=== PATIENT | female | born 2000 | race Caucasian/White ===

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

== ENCOUNTER 2018-01-27 10:06 | Emergency (ER) | payer OTHER ==
[~2018-01-27] VITALS: Ht 162.6 cm; Wt 49.9 kg
[~2018-01-27 10:06] MED LIST changes: +ALBU8.5H8 INH; +HYDR-971 PO
[2018-01-27] MEDS ORDERED: IV NORMAL SALINE 1,000ML 1,000 ML IV ONE ×3 (10:30→13:15)
[2018-01-27 10:37] LABS: BASO # 0.1 x10^3/uL (0.0-0.2); BASO % 1 % (0-3); EOS # 0.1 x10^3/uL (0.0-0.7); EOS % 1 % (0-3); HEMATOCRIT 44.5 % (36.0-47.0); HEMOGLOBIN 15.2 g/dL (12.0-15.5); LYMPH % 34 % (24-48); MEAN CORPUSCULAR HEMOGLOBIN 31 pg (25-35); MEAN CORPUSCULAR HGB CONC 34 g/dL (31-37); MEAN CORPUSCULAR VOLUME 90 fL (79-100); MONO # 0.6 x10^3/uL (0.0-1.1); MONO % 7 % (0-9); NEUT # 5.2 x10^3uL (1.8-7.7); NEUT % 58 % (31-73); PLATELET COUNT 308 x10^3/uL (140-400); RED BLOOD COUNT 4.97 x10^6/uL (3.50-5.40); RED CELL DISTRIBUTION WIDTH 13.4 % (11.5-14.5)
[2018-01-27 10:47] LABS: PREG TEST PT QUAL NEGATIVE (NEG)
[2018-01-27 10:54] LABS: ALBUMIN 4.2 g/dL (3.4-5.0); CALCIUM 9.1 mg/dL (8.5-10.1); CREATININE 0.7 mg/dL (0.6-1.0); DIRECT BILIRUBIN 0.1 mg/dL (0.0-0.2); GFR 107.8; POTASSIUM 3.2 mmol/L (3.5-5.1); TOTAL BILIRUBIN 0.3 mg/dL (0.2-1.0); TOTAL PROTEIN 7.2 g/dL (6.4-8.2)
[2018-01-27] MEDS ORDERED: ONDANSETRON PF 4 MG/2 ML VIAL. IV ONE (11:00)
[2018-01-27] MEDS ORDERED: ONDANSETRON ODT 4 MG TAB.RAPDIS PO ONE (11:00)
[2018-01-27] MEDS ORDERED: CONTRAST GIVEN MC PRN (11:30)
[2018-01-27] MEDS ORDERED: IOHEXOL 300 MG/ML 75 ML VIAL. IV ONE (11:30)
[2018-01-27 11:51] LABS: BACTERIA,URINE FEW /HPF (0-FEW); BILIRUBIN,URINE NEG (NEG); CLARITY,URINE HAZY; COLOR,URINE YELLOW; GLUCOSE,URINE NEG (NEG); NITRITE,URINE NEG (NEG); SQUAMOUS EPITHELIAL CELL,UR OCC /LPF; UROBILINOGEN,URINE 0.2 mg/dL (0.2 mg/dL)
--- NOTE | 2018-01-27 11:52 | PHYS DOC ---
Past History Past Medical History: No Pertinent History Past Surgical History: No Surgical History Smoking: Non-smoker Alcohol Use: None Drug Use: None Adult General Chief Complaint Chief Complaint: FLANK PAIN HPI HPI This is a pleasant 17-year-old female presenting the emergency department today with nausea vomiting and right flank pain. The pain is sharp shooting pain that is nonradiating intermittent and without alleviating factors. She denies any fevers or chills at home. She denies being . No vaginal bleeding. She denies hematuria polyuria or dysuria. Review of systems negative for chest pain shortness of breath fevers chills neck stiffness. All other review of systems is negative unless otherwise noted in history of present illness. ED course: 17-year-old female presenting with right flank pain. On arrival she is afebrile with a normal heart rate. Saturating well on room air. On examination she is well-appearing nontoxic and without any acute distress. Abdomen is soft and mildly tender in the right lower quadrant. Mild right CVA tenderness present. Otherwise no rebound tenderness or guarding. No distention of the abdomen. Negative Zarate sign. Regular rate and rhythm on cardiac auscultation. Clear lungs bilaterally. The remainder the exam is unremarkable. IV established, nausea and pain medications given along with IV fluids. Blood work obtained along with status and CT the abdomen pelvis. Blood work shows normal CBC. Chemistry panel shows mildly low potassium. Negative . Urinalysis shows blood without signs of infection. Negative leuk esterase. Negative nitrite. CT the abdomen pelvis shows a 3 mm right UVJ stone with hydronephrosis. Patient was recently catheterized which explains gas in lumen. We will provide the patient with oral pain medication. We will have her follow-up with urology within 3-5 days or to return for worsening symptoms.The patient has been examined and was not found to have an emergency medical condition. The patient was then discharged home in stable condition. They were to return if their symptoms worsened or if they were concerned for any reason. Tnyz-mh-aucg discharge instructions and return precautions were given. Patient' s questions were answered to their satisfaction. Patient is comfortable with plan. Review of Systems Review of Systems SEE ABOVE. Current Medications Current Medications Current Medications Medications (Trade) Dose Ordered Sig/Gavin Start Time Stop Time Status Last Admin Dose Admin Fentanyl Citrate (Fentanyl 2ml Vial) 50 mcg PRN Q30MIN PRN 01/27/18 10:30 01/27/18 23:00 01/27/18 11:38 50 MCG Info (Do NOT chart on this entry -- for MONITORING) 1 each PRN DAILY PRN 01/27/18 11:30 01/29/18 11:29 Iohexol (Omnipaque 300 Mg/ml) 75 ml 1X ONCE 01/27/18 11:30 01/27/18 11:31 DC 01/27/18 11:42 75 ML Ondansetron HCl (Zofran Odt) 4 mg 1X ONCE 01/27/18 11:00 01/27/18 11:01 DC 01/27/18 10:52 4 MG Ondansetron HCl (Zofran) 4 mg 1X ONCE 01/27/18 11:00 01/27/18 11:01 DC Sodium Chloride 1,000 ml @ 1,000 mls/hr 1X ONCE 01/27/18 10:30 01/27/18 11:29 DC 01/27/18 10:47 1,000 MLS/HR Allergies Allergies Allergies Coded Allergies Type Severity Reaction Last Updated Verified No Known Drug Allergies 04/07/15 No Physical Exam Physical Exam SEE ABOVE Constitutional: Well developed, well nourished, no acute distress, non-toxic appearance. [] HENT: Normocephalic, atraumatic, bilateral external ears normal, oropharynx moist, no oral exudates, nose normal. [] Eyes: PERRLA, EOMI, conjunctiva normal, no discharge. [] Neck: Normal range of motion, no tenderness, supple, no stridor. [] Cardiovascular:Heart rate regular rhythm, no murmur [] Lungs & Thorax: Bilateral breath sounds clear to auscultation [] Abdomen: Bowel sounds normal, soft, no masses, no pulsatile masses. [] Skin: Warm, dry, no erythema, no rash. [] Back: mild right cva tenderness. Extremities: No tenderness, no cyanosis, no clubbing, ROM intact, no edema. [] Neurologic: Alert and oriented X 3, normal motor function, normal sensory function, no focal deficits noted. [] Psychologic: Affect normal, judgement normal, mood normal. [] Current Patient Data Vital Signs Vital Signs Date Time Temp Pulse Resp B/P (MAP) Pulse Ox O2 Delivery O2 Flow Rate FiO2 01/27/18 11:39 102 20 134/84 (101) 97 Room Air 01/27/18 10:06 98.4 Lab Results Laboratory Tests Test 01/27/18 10:20 White Blood Count 9.0 x10^3/uL (4.0-11.0) Red Blood Count 4.97 x10^6/uL (3.50-5.40) Hemoglobin 15.2 g/dL (12.0-15.5) Hematocrit 44.5 % (36.0-47.0) Mean Corpuscular Volume 90 fL (79-100) Mean Corpuscular Hemoglobin 31 pg (25-35) Mean Corpuscular Hemoglobin Concent 34 g/dL (31-37) Red Cell Distribution Width 13.4 % (11.5-14.5) Platelet Count 308 x10^3/uL (140-400) Neutrophils (%) (Auto) 58 % (31-73) Lymphocytes (%) (Auto) 34 % (24-48) Monocytes (%) (Auto) 7 % (0-9) Eosinophils (%) (Auto) 1 % (0-3) Basophils (%) (Auto) 1 % (0-3) Neutrophils # (Auto) 5.2 x10^3uL (1.8-7.7) Lymphocytes # (Auto) 3.0 x10^3/uL (1.0-4.8) Monocytes # (Auto) 0.6 x10^3/uL (0.0-1.1) Eosinophils # (Auto) 0.1 x10^3/uL (0.0-0.7) Basophils # (Auto) 0.1 x10^3/uL (0.0-0.2) Sodium Level 143 mmol/L (136-145) Potassium Level 3.2 mmol/L (3.5-5.1) L Chloride Level 105 mmol/L (98-107) Carbon Dioxide Level 27 mmol/L (21-32) Anion Gap 11 (6-14) Blood Urea Nitrogen 9 mg/dL (7-20) Creatinine 0.7 mg/dL (0.6-1.0) Estimated GFR (Cockcroft-Gault) 107.8 Glucose Level 119 mg/dL (70-99) H Calcium Level 9.1 mg/dL (8.5-10.1) Total Bilirubin 0.3 mg/dL (0.2-1.0) Direct Bilirubin 0.1 mg/dL (0.0-0.2) Aspartate Amino Transferase (AST) 16 U/L (15-37) Alanine Aminotransferase (ALT) 32 U/L (14-59) Alkaline Phosphatase 62 U/L (46-116) Total Protein 7.2 g/dL (6.4-8.2) Albumin 4.2 g/dL (3.4-5.0) Lipase 80 U/L (73-393) Serum Test, Qualitative Negative (NEG) EKG EKG [] Radiology/Procedures Radiology/Procedures [] Course & Med Decision Making Course & Med Decision Making Pertinent Labs and Imaging studies reviewed. (See chart for details) [] Dragon Disclaimer Dragon Disclaimer This electronic medical record was generated, in whole or in part, using a voice recognition dictation system. Departure Departure: Impression: Primary Impression: Nausea and vomiting Additional Impressions: Right flank pain Nephrolithiasis Disposition: HOME, SELF-CARE Condition: STABLE Referrals: PCP,ALEX (PCP) Patient Instructions: Kidney Stones Additional Instructions: Thank you for allowing us to participate in your care today. Followup with [facility] in 5-7 days. Call your Primary Doctor tomorrow and inform them of your visit today. If you do not have a primary care provider you can ask for a list of our primary care providers. Return to the emergency department you have any new or concerning findings. Follow up with urology at: [id number], [place] [id number] This should be evaluated by the primary care physician and any necessary consulting services for continued management within a few days after discharge. Return to emergency room if you have any new or concerning symptoms including but not limited to fever, chills, nausea, vomiting, intractable pain, any new rashes, chest pain, shortness of air, uncontrolled bleeding, difficulty breathing, and/or vision loss. If at any time, you are having difficulty getting into your primary care doctor or a specialist, return to the emergency department. You may have been prescribed medication or given medication in the emergency department that can change in your level of thinking and ability to operate machinery. These medications include hydrocodone and Ativan. Also, Benadryl has been known to do this as well. Be sure to check with your pharmacist and ask if the medications you've prescribed can affect your level of consciousness. I recommend not operating heavy machinery or driving while on medication such as these. Scripts Hydrocodone Bit/Acetaminophen (HYDROCODONE-APAP 5-325 ) 1 Each Tablet 1 TAB PO PRN Q6HRS PRN for PAIN, #10 TAB 0 Refills Prov: TREV OTT MD 01/27/18 Problem Qualifiers TREV OTT MD January 27, 2018 11:52
[2018-01-27] MEDS: HYDROmorphone PF 1 MG/ML DISP.SYRIN IV PRN ×2 (12:18→13:17)
--- NOTE | 2018-01-27 12:23 | RAD ---
CT Abdomen and Pelvis With Intravenous Contrast: History: Right abdominal pain with vomiting. Comparison: None. Technique: After administration of intravenous contrast, 75 mL Omnipaque-300, CT of the abdomen and pelvis was performed. Exposure: One or more of the following individualized dose reduction techniques were utilized for this examination: 1. Automated exposure control 2. Adjustment of the mA and/or kV according to patient size 3. Use of iterative reconstruction technique Findings: Evaluation enteric structures may be limited by lack of oral contrast. Liver, spleen, pancreas, gallbladder, and bilateral adrenal glands are unremarkable. No bowel obstruction or inflammation is identified. Appendix is without evidence of inflammation. Uterus and adnexa have unremarkable CT appearance. Small amount of free fluid is present with pelvis, within physiologic limits. Moderate-severe right hydroureteronephrosis is noted secondary to 3 mm right UVJ stone. There is obstructive uropathy with delayed phase of enhancement relative to the contralateral side. There is also presence of gas within the anterior lumen of the urinary bladder. Impression: 1. Moderate-severe right hydroureteronephrosis secondary to 3 mm right UVJ stone. Associated right obstructive uropathy. 2. Gas is seen within the lumen of urinary bladder. This could be due to recent catheterization versus infection with gas-forming organisms. Recommend clinical correlation. Electronically signed by: Elliott Dos Santos MD (01/27/2018 12:20 PM) [facility]
[2018-01-27] MEDS ORDERED: HYDR-2758 PO (12:45)
[2018-01-27] MEDS ORDERED: POTA10TA10 PO (13:01)
[2018-01-27] MEDS ORDERED: ONDA4TAB10 SL (13:51)
[2018-01-27 14:20] VITALS: BP 127/80
== END 2018-01-27 14:45 | disposition home or self-care (01) ==
LOC: ER 10:06
DX: N13.2 Hydronephrosis with renal and ureteral calculous obstruction (principal)
CPT/HCPCS: 36415; 51701; 74177; 80048; 80076; 81001; 83690; 84703; 85025; 96361; 96374; 96375; 96376; 99285; J1170; J3010; Q0162; Q9967; J7030